=== PATIENT | male | born 1945 | race Caucasian/White ===

== ENCOUNTER 2021-09-09 13:28 | Emergency (ER) | payer OTHER, MEDICARE ==
[2021-09-09 15:46] LABS: RED BLOOD COUNT 4.27 M/UL (4.20-5.50); WHITE BLOOD COUNT 7.1 K/UL (4.5-11.0)
[2021-09-09 16:14] LABS: BUN/CREATININE RATIO 26 (0-10)
== END 2021-09-10 01:50 | disposition short-term general hospital (02) ==
LOC: ER1 13:28
PROVIDERS: Physician Assistant
DX: I77.1 Stricture of artery (principal); I51.9 Heart disease, unspecified; E11.51 Type 2 diabetes mellitus with diabetic peripheral angiopathy without gangrene; E11.22 Type 2 diabetes mellitus with diabetic chronic kidney disease; N18.9 Chronic kidney disease, unspecified; Z88.8 Allergy status to other drugs, medicaments and biological substances
CPT/HCPCS: 73630; 75635; 80053; 85025; 85610; 96374; 99285; J2060; Q9967